=== PATIENT | female | born 1980 | race African-American/Black ===

== ENCOUNTER 2023-08-19 13:41 | Emergency (ER) | payer MEDICAID ==
[~2023-08-19] VITALS: Ht 162.6 cm; Wt 55.0 kg
[2023-08-19 13:52] VITALS: O2SAT 97
[2023-08-19] MEDS ORDERED: MAGNESIUM/ALUMINUM HYDROXIDE/SIMETHICONE 30ML UDC PO STA (14:33)
[2023-08-19 15:04] LABS: BASOPHILS % 2.8 % (0.0-2.0); EOSINOPHILS % 0.9 % (0.0-5.0); HEMATOCRIT. 38.5 % (36.0-48.0); LYMPHOCYTES % 43.1 % (20.0-50.0); MEAN CORPUSCULAR HEMOGLOBIN 29.7 pg (28.0-32.0); MEAN CORPUSCULAR HGB CONC 33.7 g/dL (31.0-37.0); MEAN PLATELET VOLUME 9.4 fl (7.4-10.4); MONOCYTES % 9.9 % (2.0-8.0); NEUTROPHILS % 43.3 % (40.0-76.0); PLATELET 134 x1000/uL (130-400); RED BLOOD CELL COUNT 4.38 mill/uL (4.2-5.4); WHITE BLOOD COUNT 4.9 x1000/uL (4.5-11.0)
[2023-08-19 15:15] LABS: HCG SCREEN NEGATIVE
[2023-08-19] MEDS ORDERED: KETOROLAC 30MG/ML VIAL IV ONE ×2 (15:15→19:15)
[2023-08-19 15:28] LABS: ALANINE AMINOTRANSFERASE 44 IU/L (10-49); ALBUMIN 4.3 g/dL (3.2-4.8); ASPARTATE AMINOTRANSFERASE 60 IU/L (<34); BILIRUBIN TOTAL 1.2 mg/dL (0.1-1.0); CALCIUM 9.1 mg/dL (8.7-10.4); CARBON DIOXIDE 28 mEq/L (21-32); CHLORIDE 106 mEq/L (98-107); CREATININE 0.7 mg/dL (0.6-1.0); ETHANOL BLOOD 376 mg/dL (<10); GLUCOSE 103 mg/dL (70-105); POTASSIUM 3.4 mEq/L (3.5-5.1); PROTEIN TOTAL 8.3 g/dL (6.0-8.3); SODIUM 143 mEq/L (136-145); UREA NITROGEN BLOOD 9 mg/dL (9-23)
[2023-08-19 15:37] LABS: CLARITY URINE CLEAR (CLEAR); COLOR URINE YELLOW (YELLOW); GLUCOSE URINE NEGATIVE (NEGATIVE); KETONES URINE NEGATIVE (NEGATIVE); LEUKOCYTE ESTERASE URINE 1+ (NEGATIVE); NITRITE URINE NEGATIVE (NEGATIVE); OCCULT BLOOD URINE NEGATIVE (NEGATIVE); PH URINE 5.5 (4.5-8.0); PROTEIN URINE NEGATIVE (NEGATIVE); SPECIFIC GRAVITY URINE 1.009 (1.005-1.030); UROBILINOGEN URINE 0.2 E.U./dL (0.2-1.0)
[2023-08-19 16:09] LABS: BACTERIA URINE 1+; RBC URINE 0-2 /hpf (0-2); SQUAMOUS EPITHELIAL CELL URINE 1+ /lpf (RARE/1+)
[2023-08-19 16:11] LABS: *AMPHETAMINES SCREEN URINE NEGATIVE (NEGATIVE); *BARBITURATES SCREEN URINE NEGATIVE (NEGATIVE); *BENZODIAZEPINES SCREEN URINE NEGATIVE (NEGATIVE); *COCAINE SCREEN URINE NEGATIVE (NEGATIVE); CANNABINOID URINE SCREEN NEGATIVE (NEGATIVE); ECSTASY MDMA SCREEN URINE NEGATIVE (NEGATIVE); METHADONE URINE SCREEN Neg (NEGATIVE); OPIATES URINE SCREEN NEGATIVE (NEGATIVE); PHENCYCLIDINE URINE SCREEN NEGATIVE (NEGATIVE)
[2023-08-19] MEDS ORDERED: LIDOCAINE 5% PATCH TOP SCH (17:00)
[2023-08-19] MEDS ORDERED: ACETAMINOPHEN 325MG TABLET PO ONE (17:00)
[2023-08-19 19:15] VITALS: BP 120/84
[2023-08-19] MEDS ORDERED: IBUP-2028 MT (19:18)
[2023-08-19] MEDS ORDERED: LIDO700A15 TP (19:18)
[2023-08-19 20:26] VITALS: PULSE 66; RESP 18; TEMP 98.8
[2023-08-19] MEDS ORDERED: IOHEXOL-350 100 ML BOTTLE ONE (23:07)
== END 2023-08-19 20:29 | disposition home or self-care (01) ==
LOC: ER 13:41
DX: M54.50 Low back pain, unspecified (principal); K76.0 Fatty (change of) liver, not elsewhere classified; I10 Essential (primary) hypertension; Z88.0 Allergy status to penicillin
CPT/HCPCS: 80053; 80305; 81003; 80320; 84703; 83690; 85025; 36415; 74177; 76830; 76856; 96374; 96376; 99285; Q9967; J1885; Z7610 ×3; G0480

== ENCOUNTER 2024-02-17 21:45 | Emergency (ER) | payer MEDICAID, OTHER ==
[~2024-02-17] VITALS: Ht 165.1 cm; Wt 75.0 kg
[~2024-02-17 21:45] MED LIST: IBUP-2028 MT; LIDO700A15 TP
[2024-02-17 21:46] VITALS: O2SAT 99
[2024-02-17 22:47] LABS: CLARITY URINE CLEAR (CLEAR); COLOR URINE YELLOW (YELLOW); GLUCOSE URINE NEGATIVE (NEGATIVE); KETONES URINE NEGATIVE (NEGATIVE); LEUKOCYTE ESTERASE URINE NEGATIVE (NEGATIVE); NITRITE URINE NEGATIVE (NEGATIVE); OCCULT BLOOD URINE NEGATIVE (NEGATIVE); PH URINE 7.5 (4.5-8.0); PROTEIN URINE NEGATIVE (NEGATIVE); SPECIFIC GRAVITY URINE 1.004 (1.005-1.030); UROBILINOGEN URINE 0.2 E.U./dL (0.2-1.0)
[2024-02-17 23:07] LABS: DIFFERENTIAL COMMENT 1; HEMATOCRIT. 35.9 % (36.0-48.0); HEMOGLOBIN. 12.7 g/dL (12.0-16.0); MEAN CORPUSCULAR HEMOGLOBIN 32.1 pg (28.0-32.0); MEAN CORPUSCULAR HGB CONC 35.4 g/dL (31.0-37.0); MEAN CORPUSCULAR VOLUME 90.5 fL (81.0-99.0); MEAN PLATELET VOLUME 9.9 fl (7.4-10.4); PLATELET 131 x1000/uL (130-400); RED BLOOD CELL COUNT 3.97 mill/uL (4.2-5.4); WHITE BLOOD COUNT 4.6 x1000/uL (4.5-11.0)
[2024-02-17 23:14] LABS: CANNABINOID URINE SCREEN NEGATIVE (NEGATIVE)
[2024-02-17 23:16] LABS: *AMPHETAMINES SCREEN URINE NEGATIVE (NEGATIVE); *BARBITURATES SCREEN URINE NEGATIVE (NEGATIVE); *BENZODIAZEPINES SCREEN URINE NEGATIVE (NEGATIVE); *COCAINE SCREEN URINE NEGATIVE (NEGATIVE); ECSTASY MDMA SCREEN URINE NEGATIVE (NEGATIVE); METHADONE URINE SCREEN NEGATIVE (NEGATIVE); OPIATES URINE SCREEN NEGATIVE (NEGATIVE); PHENCYCLIDINE URINE SCREEN NEGATIVE (NEGATIVE)
[2024-02-17 23:16] LABS: INR 0.9; PROTHROMBIN TIME 10.3 sec (9.6-11.0)
[2024-02-17] MEDS: SODIUM CHLORIDE 0.9% 1,000 ML IV ONE (23:16)
[2024-02-17] MEDS: ACETAMINOPHEN 1000MG/100ML 100 ML IV ONE (23:16)
[2024-02-17] MEDS: ONDANSETRON HCL 4MG/2ML INJ IV STA (23:16)
[2024-02-17 23:26] LABS: CHLORIDE 102 mEq/L (98-107); POTASSIUM 3.5 mEq/L (3.5-5.1); SODIUM 139 mEq/L (136-145)
[2024-02-17 23:27] LABS: CALCIUM 9.5 mg/dL (8.7-10.4); CARBON DIOXIDE 27 mEq/L (21-32)
[2024-02-17 23:30] VITALS: TEMP 98.3
[2024-02-17 23:30] LABS: HCG SCREEN NEGATIVE
[2024-02-17 23:32] LABS: CREATININE 0.6 mg/dL (0.6-1.0); GLUCOSE 52 mg/dL (70-105); UREA NITROGEN BLOOD 8 mg/dL (9-23)
[2024-02-17 23:34] LABS: LACTIC ACID 2.7 mmol/L (0.4-2.0)
[2024-02-17 23:36] LABS: ATYPICAL LYMPHOCYTES 3
[2024-02-17 23:37] LABS: GIANT PLATELETS 1+; PLATELET ESTIMATE NORMAL; TARGET CELLS 4+
[2024-02-17 23:41] LABS: ETHANOL BLOOD 311 mg/dL (<10)
[2024-02-17 23:54] LABS: ALANINE AMINOTRANSFERASE 92 IU/L (10-49); ASPARTATE AMINOTRANSFERASE 147 IU/L (<34)
[2024-02-17 23:55] LABS: BILIRUBIN DIRECT 0.3 mg/dL (<=3.0); BILIRUBIN TOTAL 0.8 mg/dL (0.1-1.0); PROTEIN TOTAL 8.6 g/dL (6.0-8.3)
[2024-02-18] MEDS: DEXTROSE 50% WATER 50ML SYRINGE IV NR (01:02)
[2024-02-18] MEDS ORDERED: POLY119P2 MT (02:26)
[2024-02-18 02:50] VITALS: BP 148/91; PULSE 74; RESP 14
== END 2024-02-18 03:20 | disposition home or self-care (01) ==
LOC: ER 21:45
DX: K59.00 Constipation, unspecified (principal); F10.129 Alcohol abuse with intoxication, unspecified; I10 Essential (primary) hypertension; Z88.0 Allergy status to penicillin; Y90.8 Blood alcohol level of 240 mg/100 ml or more
CPT/HCPCS: 80076; 80305; 80048; 81003; 80320; 84703; 83605 ×2; 83690; 85025; 85610; 36415; 96365; 96375 ×2; 99285; 74176; J2405; J7030; Z7610; G0480; J0131